=== PATIENT | male | born 1940 | race Caucasian/White ===

== ENCOUNTER 2022-07-07 09:27 | Observation (INO) | payer OTHER ==
--- NOTE | 2022-07-07 09:41 | ERPHSYRPT ---
- History of Present Illness Time Seen by Provider: 07/07/22 09:40 Historian: patient Exam Limitations: no limitations Physician History: Patient is an 81-year-old male with a history of quadruple bypass presents to our ED via EMS for evaluation of of chest pressure fast heart rate and near syncope. Symptoms started just prior to arrival. EMS states they were on their way to [facility] however they were not able to contact anyone via her iron and therefore diverted to our hospital. Upon arrival patient was observed to be in SVT. Patient described the chest pressure. No associated nausea vomiting or diaphoresis. Patient appeared anxious. Symptoms are constant. Symptoms are moderate in intensity. No specific worsening improving factors. Patient denies a history of the same. He voices no other complaints or concerns at this time. Portions of this note were created with voice recognition technology. There may be grammatical, spelling, punctuation or sound alike errors Timing/Duration: today Activities at Onset: none Quality: pressure Location: substernal Chest Pain Radiation: no radiation Severity of Pain-Max: moderate Severity of Pain-Current: mild Modifying Factors: Improves With: nothing Associated Symptoms: other (Near syncope) Nitro Today/Relief: no nitro taken today Aspirin Treatment Today: no aspirin today Allergies/Adverse Reactions: No Known Drug Allergies Allergy (Verified 07/07/22 10:07) - Review of Systems Constitutional: No Symptoms, No Fever, No Chills Eyes: No Symptoms Ears, Nose, & Throat: No Symptoms Respiratory: No Symptoms, No Cough, No Dyspnea Cardiac: No Symptoms, No Chest Pain, No Edema, No Syncope Abdominal/Gastrointestinal: No Symptoms, No Abdominal Pain, No Nausea, No Vomiting, No Diarrhea Genitourinary Symptoms: No Symptoms, No Dysuria Musculoskeletal: No Symptoms, No Back Pain, No Neck Pain Skin: No Symptoms, No Rash Neurological: No Symptoms, No Dizziness, No Focal Weakness, No Sensory Changes Psychological: No Symptoms Endocrine: No Symptoms Hematologic/Lymphatic: No Symptoms Immunological/Allergic: No Symptoms All Other Systems: Reviewed and Negative - Past Medical History Neurological History: No Pertinent History Cardiac History: Hypertension Respiratory History: No Pertinent History Endocrine Medical History: No Pertinent History Musculoskeletal History: Osteoarthritis Other Medical History: 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 - Nursing Vital Signs Nursing Vital Signs: Initial Vital Signs Temperature 97.3 F 02/06/23 09:34 Pulse Rate 164 H 07/07/22 09:34 Respiratory Rate 19 07/07/22 09:34 Blood Pressure 104/83 07/07/22 09:34 O2 Sat by Pulse Oximetry 98 07/07/22 09:34 Pain Scale Pain Intensity 0 - Physical Exam General Appearance: alert, other (She appears anxious.) Eye Exam: PERRL/EOMI, eyes nml inspection Ears, Nose, Throat Exam: normal ENT inspection, TMs normal, pharynx normal, mo ist mucous membranes Neck Exam: normal inspection, non-tender, supple, full range of motion Respiratory Exam: normal breath sounds, lungs clear, airway intact, No respiratory distress Cardiovascular Exam: normal heart sounds, tachycardia, capillary refill 2-3 sec Gastrointestinal/Abdomen Exam: soft, normal bowel sounds, No tenderness, No mass Back Exam: normal inspection, normal range of motion, No CVA tenderness, No vertebral tenderness Extremity Exam: normal inspection, normal range of motion Neurologic Exam: alert, oriented x 3, cooperative, normal mood/affect, sensation nml, No motor deficits Skin Exam: normal color, warm, dry Lymphatic Exam: No adenopathy SpO2 Interpretation: normal SpO2: 98 O2 Delivery: Room Air - Course Nursing assessment & vital signs reviewed: Yes EKG Interpreted by Me: RATE (164), SVT, NORMAL AXIS - Radiology Exams Chest X-ray Interpretation: Teleradiologist Report (Nonacute hyperinflated chest with chronic features) Ordered Tests: Active Orders 24 hr Category Date Time Status Pta STAT Care 07/07/22 09:39 Active EKG-ER Only STAT Care 07/07/22 09:39 Active IV Insertion STAT Care 07/07/22 09:39 Active Pulse Oximetry (ED) STAT Care 07/07/22 09:39 Active CHEST 1 VIEW (PORTABLE) Stat Exams 07/07/22 09:39 Completed CBC W DIFF Stat Lab 07/07/22 09:40 Completed NT PRO BNP Stat Lab 07/07/22 09:40 Completed TROPONIN Q4H Lab 07/07/22 17:45 Completed TROPONIN Stat Lab 07/07/22 13:30 Completed Transfer Order Routine Transfer 07/07/22 Ordered Medication Summary Generic Name Dose Route Start Last Admin Trade Name Freq PRN Reason Stop Dose Admin Diltiazem HCl 120 mg 07/07/22 16:00 07/07/22 16:29 Diltiazem Hcl Cd 120 Mg Cap.Sr.24h PO 08/06/22 15:59 Not Given DAILY ORESTES Discontinued Medications Generic Name Dose Route Start Last Admin Trade Name Anselmo PRN Reason Stop Dose Admin Adenosine Confirm 07/07/22 09:47 Adenosine 6 Mg/2 Ml Vial Administered 07/07/22 09:48 Dose 24 mg IV .STK-MED ONE Sodium Chloride Confirm 07/07/22 09:47 Sodium Chloride 0.9% 1000 Ml Administered 07/07/22 09:48 Dose 1,000 mls @ ud .ROUTE .STK-MED ONE Diltiazem HCl Confirm 07/07/22 09:57 Cardizem Drip 100 Mg/100 Ml D5w Administered 07/07/22 09:58 Dose 100 mls @ ud IV .STK-MED ONE Lab/Rad Data: Laboratory Result Diagrams 07/07/22 09:40 07/07/22 10:29 Laboratory Results 07/07/22 07/07/22 07/07/22 Range/Units Unknown 17:45 13:30 WBC (4.0-10.5) x10^3/uL RBC (4.1-5.6) x10^6/uL Hgb (12.5-18.0) g/dL Hct (42-50) % MCV (78-100) fL MCH (26-32) pg MCHC (32-36) g/dL RDW (11.5-14.0) % Plt Count (150-450) x10^3/uL MPV (7.5-11.0) fL Gran % (36.0-66.0) % Immature Gran % (Auto) (0.00-0.4) % Nucleat RBC Rel Count (0.00-0.1) % Eos # (Auto) (0-0.5) x10^3/uL Immature Gran # (Auto) (0.00-0.03) x10^3u/L Absolute Lymphs (auto) (1.0-4.6) x10^3/uL Absolute Monos (auto) (0.0-1.3) x10^3/uL Absolute Nucleated RBC (0.00-0.01) x10^3u/L Lymphocytes % (24.0-44.0) % Monocytes % (0.0-12.0) % Eosinophils % (0.00-5.0) % Basophils % (0.0-0.4) % Absolute Granulocytes (1.4-6.9) x10^3/uL Basophils # (0-0.4) x10^3/uL Sodium Direct (138-146) mmol/L Potassium (3.5-4.9) mmol/L Chloride (98-109) mmol/L Carbon Dioxide (24-29) mmol/L Venous BUN (8-26) mg/dL Creatinine (0.6-1.3) mg/dL Glucose (70-105) mg/dL Ionized Calcium (1.12-1.32) mmol/L Troponin 0.07 H (0.00-0.03) ng/mL Troponin I 0.060 H* 0.031 (0.000-0.034) ng/mL NT-Pro-B Natriuret Pep (0-1800) pg/mL Influenza Type A Ag NEGATIVE (NEGATIVE) Influenza Type B Ag NEGATIVE (NEGATIVE) RSV (PCR) NEGATIVE (Negative) SARS-CoV-2 (PCR) NEGATIVE (NEGATIVE) 07/07/22 07/07/22 07/07/22 Range/Units 10:29 09:40 09:40 WBC (4.0-10.5) x10^3/uL RBC (4.1-5.6) x10^6/uL Hgb (12.5-18.0) g/dL Hct (42-50) % MCV (78-100) fL MCH (26-32) pg MCHC (32-36) g/dL RDW (11.5-14.0) % Plt Count (150-450) x10^3/uL MPV (7.5-11.0) fL Gran % (36.0-66.0) % Immature Gran % (Auto) (0.00-0.4) % Nucleat RBC Rel Count (0.00-0.1) % Eos # (Auto) (0-0.5) x10^3/uL Immature Gran # (Auto) (0.00-0.03) x10^3u/L Absolute Lymphs (auto) (1.0-4.6) x10^3/uL Absolute Monos (auto) (0.0-1.3) x10^3/uL Absolute Nucleated RBC (0.00-0.01) x10^3u/L Lymphocytes % (24.0-44.0) % Monocytes % (0.0-12.0) % Eosinophils % (0.00-5.0) % Basophils % (0.0-0.4) % Absolute Granulocytes (1.4-6.9) x10^3/uL Basophils # (0-0.4) x10^3/uL Sodium Direct 137 L (138-146) mmol/L Potassium 4.2 (3.5-4.9) mmol/L Chloride 105 (98-109) mmol/L Carbon Dioxide 22 L (24-29) mmol/L Venous BUN 28 H (8-26) mg/dL Creatinine 1.3 (0.6-1.3) mg/dL Glucose 113 H (70-105) mg/dL Ionized Calcium 1.21 (1.12-1.32) mmol/L Troponin 0.02 (0.00-0.03) ng/mL Troponin I (0.000-0.034) ng/mL NT-Pro-B Natriuret Pep 477 (0-1800) pg/mL Influenza Type A Ag (NEGATIVE) Influenza Type B Ag (NEGATIVE) RSV (PCR) (Negative) SARS-CoV-2 (PCR) (NEGATIVE) 07/07/22 Range/Units 09:40 WBC 5.8 (4.0-10.5) x10^3/uL RBC 4.80 (4.1-5.6) x10^6/uL Hgb 14.6 (12.5-18.0) g/dL Hct 45.0 (42-50) % MCV 93.8 (78-100) fL MCH 30.4 (26-32) pg MCHC 32.4 (32-36) g/dL RDW 12.9 (11.5-14.0) % Plt Count 137 L (150-450) x10^3/uL MPV 10.9 (7.5-11.0) fL Gran % 80.5 H (36.0-66.0) % Immature Gran % (Auto) 0.3 (0.00-0.4) % Nucleat RBC Rel Count 0.0 (0.00-0.1) % Eos # (Auto) 0.04 (0-0.5) x10^3/uL Immature Gran # (Auto) 0.02 (0.00-0.03) x10^3u/L Absolute Lymphs (auto) 0.65 L (1.0-4.6) x10^3/uL Absolute Monos (auto) 0.40 (0.0-1.3) x10^3/uL Absolute Nucleated RBC 0.00 (0.00-0.01) x10^3u/L Lymphocytes % 11.1 L (24.0-44.0) % Monocytes % 6.9 (0.0-12.0) % Eosinophils % 0.7 (0.00-5.0) % Basophils % 0.5 (0.0-0.4) % Absolute Granulocytes 4.69 (1.4-6.9) x10^3/uL Basophils # 0.03 (0-0.4) x10^3/uL Sodium Direct (138-146) mmol/L Potassium (3.5-4.9) mmol/L Chloride (98-109) mmol/L Carbon Dioxide (24-29) mmol/L Venous BUN (8-26) mg/dL Creatinine (0.6-1.3) mg/dL Glucose (70-105) mg/dL Ionized Calcium (1.12-1.32) mmol/L Troponin (0.00-0.03) ng/mL Troponin I (0.000-0.034) ng/mL NT-Pro-B Natriuret Pep (0-1800) pg/mL Influenza Type A Ag (NEGATIVE) Influenza Type B Ag (NEGATIVE) RSV (PCR) (Negative) SARS-CoV-2 (PCR) (NEGATIVE) - Progress Progress: improved Air Movement: good Progress Note: Patient is an 81-year-old male presents the emergency department 07/07/22 11:[address] Sher client service consultant [facility] who advised obtaining a second troponin. Stopping the Cardizem drip and starting patient on oral Cardizem. If patient is asymptomatic and remains in sinus rhythm after drip is stopped patient may be discharged home. 07/07/22 13:41 We we trended patient's troponins. Patient's troponin trended upward. We decided to admit patient for observation. Patient has no chest pain at all. Patient is a 81-year-old male with a history of quadruple bypass presents to our ED via EMS for chest pressure. EKG reviewed by Dr. Hassan revealed SVT. Patient received adenosine 6 mg followed by 12 mg. No successful conversion. Cardizem drip initiated. Rate controlled achieved. Troponin 0.02. Second troponin 0.031. We spoke to Dr. Phoenix Maddox client service consultant at [facility] who advised discharge. We obtained a third troponin which increased to 0.06. We decided to keep patient in the hospital for observation. Patient's initial complaint was acute. Complex if complaint was severe. No significant comorbidities to contribute the patient's present encounter. Studies ordered includes EKG, chest x-ray, CBC, CMP, COVID study, BNP, troponin, The results of the studies were used to formulate the medical decision-making process. Diltiazem drip initiated. Diltiazem drip started as a rate control and antiarrhythmic which has serious potential side effects. This is a dangerous medication in this regard. This required ongoing monitoring. Patient's presentation required immediate intervention dictating a time of critical care. Case discussed with Dr. Sher client service consultant. I spoke to Dr. Genesis Maddox 2 different occasions regarding our patient. Patient agrees to admission to [facility] for further rosa luation and treatment. Level of EM service provided was critical. Complexity of problem is critical. Complexity of data analyzed was high. Risks of complication/morbidity/mortality of patient management was high/critical. Critical care time was between 30 and 74 minutes. Patient served as independent historian however his at bedside also provided significant information used in the HPI. Patient is a full code. Portions of this note were created with voice recognition technology. There may be grammatical, spelling, punctuation or sound alike errors 07/07/22 19:22 07/07/22 19:25 Blood Culture(s) Obtained: No Antibiotics given: No Discussed with : John Will see patient in: hospital (observation) Counseled pt/family regarding: lab results, diagnosis, rad results - Departure Departure Disposition: Observation Clinical Impression: SVT (supraventricular tachycardia), Elevated troponin Condition: Stable Critical Care Time: Yes Critical Care Time(excluding separately billable procedures): Critical 30-74 mins Referrals: ELYSIA SHEPPARD MD [Primary Care Provider] - Follow up/PCP as directed
[2022-07-07] MEDS ORDERED: Sodium Chloride 0.9% 1000 ML 1,000 ML ONE (09:47)
[2022-07-07] MEDS ORDERED: Adenocard IV 6 MG/2 ML IV ONE (09:47)
--- NOTE | 2022-07-07 09:55 | XRAY ---
Indication: Chest pain. Comparison: None Portable chest hyperinflated with minimal left upper lobe fibrosis/scarring. No focal infiltrate, consolidation, or large effusion. Heart not enlarged with CABG surgery. Bony thorax intact with mild degenerative changes. Impression: Nonacute hyperinflated chest with chronic features.
[2022-07-07 09:56] LABS: Absolute Neutrophil Ct (ANC) 4.69 x10^3/uL (1.4-6.9); BASOPHIL % 0.5 % (0.0-0.4); Basophil (Absolute #) 0.03 x10^3/uL (0-0.4); Eosinophil % 0.7 % (0.00-5.0); Eosinophil (Absolute #) 0.04 x10^3/uL (0-0.5); Hemoglobin 14.6 g/dL (12.5-18.0); IMMATURE GRAN # 0.02 x10^3u/L (0.00-0.03); IMMATURE GRAN % 0.3 % (0.00-0.4); Lymphocyte (Absolute #) 0.65 x10^3/uL (1.0-4.6); Lymphocytes % 11.1 % (24.0-44.0); Mean Cell Volume 93.8 fL (78-100); Mean Corpuscular Hemoglobin 30.4 pg (26-32); Mean Corpuscular Hgb Concent. 32.4 g/dL (32-36); Mean Platelet Volume 10.9 fL (7.5-11.0); Monocytes % 6.9 % (0.0-12.0); Neutrophil % 80.5 % (36.0-66.0); Platelet Count 137 x10^3/uL (150-450); Red Cell Distribution Width 12.9 % (11.5-14.0); White Blood Count 5.8 x10^3/uL (4.0-10.5)
[2022-07-07] MEDS ORDERED: CARDIZEM DRIP 100 MG/100 ML D5W 100 ML IV ONE (09:57)
[2022-07-07 10:38] LABS: ISTAT K 4.2 mmol/L (3.5-4.9)
[2022-07-07 10:39] LABS: ISTAT CREA 1.3 mg/dL (0.6-1.3); ISTAT iCA 1.21 mmol/L (1.12-1.32)
[2022-07-07 11:24] LABS: INFLUENZA A NEGATIVE (NEGATIVE); INFLUENZA B NEGATIVE (NEGATIVE); RESPIRATORY SYNCTIAL VIRUS NEGATIVE (Negative); SARS-CoV-2 Xpert Express NEGATIVE (NEGATIVE)
[2022-07-07 14:53] LABS: TROPONIN 0.031 ng/mL (0.000-0.034)
[2022-07-07 14:56] LABS: ISTAT cTNI 0.07 ng/mL (0.00-0.03)
[2022-07-07] MEDS: Cardizem CD PO SCH ×2 (15:26→16:29)
[2022-07-07] MEDS ORDERED: TYLENOL 325 MG PO PRN (21:00)
[2022-07-07] MEDS ORDERED: MAALOX ES 30 ML UNIT DOSE PO PRN (21:00)
[2022-07-07] MEDS ORDERED: MILK OF MAGNESIA 30 ML PO PRN (21:00)
[2022-07-07] MEDS ORDERED: Senokot-S Tablet PO PRN (21:00)
[2022-07-07] MEDS ORDERED: Zofran 4 MG/2 ML VIAL IV PRN (21:00)
[2022-07-07] MEDS ORDERED: Flonase NASAL NS SCH (22:00)
[2022-07-07] MEDS ORDERED: NEURONTIN PO PRN (22:41)
[2022-07-07] MEDS ORDERED: Flomax 0.4 MG PO SCH (23:00)
[2022-07-07] MEDS: Zestril 20 MG PO SCH (23:06)
[2022-07-07] MEDS: Zocor 10MG PO SCH (23:06)
[2022-07-07] MEDS: CLARITIN 10 MG PO SCH (23:06)
[2022-07-08] MEDS ORDERED: CARDIZEM DRIP 100 MG/100 ML D5W 100 ML IV ONE (02:02)
[2022-07-08] MEDS ORDERED: Sodium Chloride 0.9% 1000 ML 1,000 ML ONE ×2 (02:03→02:57)
[2022-07-08] MEDS: CARDIZEM DRIP 100 MG/100 ML D5W 100 ML IV PRN ×2 (02:17→03:21)
[2022-07-08] MEDS ORDERED: Sodium Chloride 0.9% 1000 ML 1,000 ML IV STA (02:31)
[2022-07-08] MEDS ORDERED: Cardizem IV 50 MG/10 ML IV ONE (03:24)
[2022-07-08 04:42] LABS: ANION GAP 10.9 MEQ/L (5-15); BLOOD UREA NITROGEN 20 mg/dL (9-20); CHLORIDE 110 mmol/L (98-107); Calcium 8.1 mg/dL (8.4-10.2); Carbon Dioxide 17 mmol/L (22-30); Cholesterol 131 mg/dL (50-200); Creatinine 1 0.83 mg/dL (0.66-1.25); EST GLOMERULAR FILTRATION RATE > 60.0 ML/MIN; Glucose 117 mg/dL (74-106); HDL CHOLESTEROL 43 mg/dL (40-60); LDL, DIRECT 64 mg/dL (30-100); MAGNESIUM 1.9 mg/dL (1.6-2.3); NT PRO BNP 361 pg/mL (0-1800); Potassium 3.8 mmol/L (3.5-5.1); Risk Ratio 3.1; SODIUM 134 mmol/L (137-145); TRIGLYCERIDE 69 mg/dL (30-150)
[2022-07-08] MEDS ORDERED: MEDICATION INTERVENTION MC SCH (07:15)
--- NOTE | 2022-07-08 08:41 | XRAY ---
Indication: Tachycardia. Comparison: One day earlier Portable chest unchanged again hyperinflated with minimal left upper lobe fibrosis/scarring. Heart not enlarged again with CABG. No new/acute findings. Comment: Preliminary interpretation made by [facility]. No critical discrepancy.
[2022-07-08] MEDS: Zestril 20 MG PO SCH (09:06)
[2022-07-08] MEDS: Klor Con PO SCH (09:06)
[2022-07-08] MEDS: LASIX 20 MG PO SCH (09:06)
[2022-07-08] MEDS: Ecotrin 325 MG PO SCH (09:07)
[2022-07-08] MEDS: PATIENT OWN MEDICATION PO SCH (09:08)
[2022-07-08] MEDS: Cardizem CD PO SCH (09:53)
[2022-07-08] MEDS ORDERED: NON-FORMULARY ITEM PO SCH (10:00)
--- NOTE | 2022-07-08 11:56 | PCM.HP ---
History of Present Illness - Chief Complaint Chief Complaint: SVT History of Present Illness: is an 81 [facility] and [facility]CP Dr Valnecia with PMHx CAD S/P CABG who presented to ER by EMS c/o dizziness ,heart palpitations and chest pressure. EKG revealed SVT rate 160 + ,CXR chronic hyperinflation no acute changes. Treatment in ER - Patient received adenosine 6 mg followed by 12 mg. No successful conversion. Cardizem drip initiated. Rate control achieved. Serial Troponin = 0.02. Second troponin = 0.031. ER consulted with Coding Team Lead Dr Wu at [facility] who advised discharge home but third troponin increased to 0.06. and patient was admitted to OBS telemetry VSS and unlabored breathing. Heart rate went up to 160s tele showed SVT and patient was moved to ICU bed and Cardiazem drip was restarted, B/P dropped and patient required NS bolus ,Rapd response was called by ICU nurse and ER Dr Hassan evaluated. Patient stabilized after additional NS bolus. Cardiazem drip discontinued and oral Cardiazem initiated . Patient transferred out of ICU to tele bed and VS remained stable. Note patient was on alpha blockers for BPH and dose was reduced. Medications & Allergies Home Medications: Home Medication List Aspirin EC 325 mg [Ecotrin 325 MG] 325 mg PO DAILY 07/07/22 [History Confirmed 07/07/22] Cetirizine HCl [Zyrtec] 10 mg PO QHS 07/07/22 [History Confirmed 07/07/22] Fluticasone Propionate [Flonase NASAL] 2 spray NS QHS 07/07/22 [History Confirmed 07/07/22] Furosemide [Lasix] 10 mg PO DAILY 07/07/22 [History Confirmed 07/07/22] Gabapentin [Neurontin ] 300 mg PO DAILY PRN PRN 07/07/22 [History Confirmed 07/07/22] Potassium Chloride 10 meq PO DAILY 07/07/22 [History Confirmed 07/07/22] Simvastatin 20Mg [Zocor 20Mg] 10 mg PO QHS 07/07/22 [History Confirmed 07/07/22] Ubidecarenone [Co Q-10] 200 mg PO DAILY 07/07/22 [History Confirmed 07/07/22] Metoprolol Tartrate 12.5 mg PO DAILY 07/08/22 [History Confirmed 07/08/22] Diltiazem HCl Cd [Cardizem CD ] 120 mg PO BID 30 Days #60 cap 07/10/22 [Rx] Tamsulosin HCl 0.4 mg [Flomax 0.4 MG] 0.4 mg PO HS 30 Days #0 07/10/22 [Rx Confirmed 07/08/22] Allergies/Adverse Reactions: Allergies Allergy/AdvReac Type Severity Reaction Status Date / Time No Known Drug Allergies Allergy Verified 07/07/22 10:07 - Past Medical History Past Medical History: Yes Neurological History: No Pertinent History ENT History: No Pertinent History Cardiac History: Hypertension Respiratory History: No Pertinent History Endocrine Medical History: No Pertinent History Musculoskelatal History: Osteoarthritis GI Medical History: No Pertinent History History: No Pertinent History Pyscho-Social History: No Pertinent History Male Reproductive Disorders: Prostate Problems Comment: 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 - Past Surgical History Past Surgical History: Yes Cardiac History: CABG GI Surgical History: Hernia Repair Musculskeletal Surgical Hx: Orthopedic Surgery Other Surgical History: back - Social History Smoking Status: Never smoker Exposure to second hand smoke: No - Physical Exam Vital Signs: Vital Signs - 24 hr Temp Pulse Resp BP BP Pulse Ox 07/08/22 11:47 98.5 F 88 22 156/72 95 07/08/22 09:00 88 127/77 07/08/22 05:03 78 102/66 97 07/08/22 04:30 68 113/70 07/08/22 04:21 86 16 113/70 07/08/22 04:00 78 18 110/70 07/08/22 03:30 94 H 14 116/68 94 L 07/08/22 03:20 81 123/76 07/08/22 03:16 96 H 107/69 07/08/22 03:15 88 18 107/69 98 07/08/22 03:14 81 18 90/59 07/08/22 03:10 152 H 18 90/59 98 07/08/22 03:08 150 H 110/87 07/08/22 03:01 150 H 18 89/59 07/08/22 03:00 160 H 89/59 07/08/22 02:55 195 H 20 78/49 97 07/08/22 02:50 166 H 18 88/76 98 07/08/22 02:46 157 H 18 91/68 07/08/22 02:45 166 H 18 87/70 97 07/08/22 02:41 155 H 97/83 07/08/22 02:40 160 H 17 97/83 97 07/08/22 02:35 165 H 16 84/64 97 07/08/22 02:29 160 H 83/72 07/08/22 02:25 161 H 18 83/72 97 07/08/22 02:21 98 F 07/08/22 02:20 158 H 18 98/85 97 07/08/22 02:17 160 H 18 98/85 07/07/22 23:36 98.2 F 69 16 107/66 92 L 07/07/22 22:12 95 07/07/22 21:04 97.3 F 76 16 136/72 96 07/07/22 20:00 72 16 118/65 97 07/07/22 19:32 98 07/07/22 18:15 64 16 124/72 95 07/07/22 17:58 76 19 119/76 95 07/07/22 16:23 76 19 112/70 95 07/07/22 15:13 66 118/70 96 07/07/22 13:09 96 H 22 107/67 96 07/07/22 12:06 101 H 18 112/72 98 General Appearance: anxiety (fearful if "heart will race again") Neurologic Exam: alert, oriented x 3, cooperative Eye Exam: eyes nml inspection Ears, Nose, Throat Exam: normal ENT inspection Neck Exam: normal inspection Respiratory Exam: normal breath sounds Cardiovascular Exam: regular rate/rhythm (rate 70) Gastrointestinal/Abdomen Exam: soft, normal bowel sounds (nontender) Rectal Exam: not done Back Exam: other (scoliosis) Extremity Exam: normal inspection Skin Exam: normal color, warm, dry Results - Labs Lab/Micro Results: Lab Results-Last 24 Hours 07/07/22 07/07/22 07/07/22 Range/Units 09:40 13:30 17:45 Sodium (137-145) mmol/L Potassium (3.5-5.1) mmol/L Chloride (98-107) mmol/L Carbon Dioxide (22-30) mmol/L Anion Gap (5-15) MEQ/L BUN (9-20) mg/dL Creatinine (0.66-1.25) mg/dL Estimated GFR ML/MIN Glucose (74-106) mg/dL POC Glucometer (74 to 106) mg/dL Calcium (8.4-10.2) mg/dL Magnesium (1.6-2.3) mg/dL Troponin 0.07 H (0.00-0.03) ng/mL Troponin I 0.031 0.060 H* (0.000-0.034) ng/mL NT-Pro-B Natriuret Pep 477 (0-1800) pg/mL Triglycerides (30-150) mg/dL Cholesterol (50-200) mg/dL LDL Cholesterol (30-100) mg/dL HDL Cholesterol (40-60) mg/dL Heart Disease Risk Ratio Thyroxine (T4) (5.53-10.96) ug/dL TSH 3rd Generation (0.47-4.68) mIU/L 07/08/22 07/08/22 07/08/22 Range/Units 01:25 02:41 03:13 Sodium 134 L (137-145) mmol/L Potassium 3.8 (3.5-5.1) mmol/L Chloride 110 H (98-107) mmol/L Carbon Dioxide 17 L (22-30) mmol/L Anion Gap 10.9 (5-15) MEQ/L BUN 20 (9-20) mg/dL Creatinine 0.83 (0.66-1.25) mg/dL Estimated GFR > 60.0 ML/MIN Glucose 117 H (74-106) mg/dL POC Glucometer 115 H (74 to 106) mg/dL Calcium 8.1 L (8.4-10.2) mg/dL Magnesium 1.9 (1.6-2.3) mg/dL Troponin (0.00-0.03) ng/mL Troponin I 0.051 H* (0.000-0.034) ng/mL NT-Pro-B Natriuret Pep 361 (0-1800) pg/mL Triglycerides 69 (30-150) mg/dL Cholesterol 131 (50-200) mg/dL LDL Cholesterol 64 (30-100) mg/dL HDL Cholesterol 43 (40-60) mg/dL Heart Disease Risk Ratio 3.1 Thyroxine (T4) (5.53-10.96) ug/dL TSH 3rd Generation 2.010 (0.47-4.68) mIU/L 07/08/22 Range/Units 03:20 Sodium (137-145) mmol/L Potassium (3.5-5.1) mmol/L Chloride (98-107) mmol/L Carbon Dioxide (22-30) mmol/L Anion Gap (5-15) MEQ/L BUN (9-20) mg/dL Creatinine (0.66-1.25) mg/dL Estimated GFR ML/MIN Glucose (74-106) mg/dL POC Glucometer (74 to 106) mg/dL Calcium (8.4-10.2) mg/dL Magnesium (1.6-2.3) mg/dL Troponin (0.00-0.03) ng/mL Troponin I (0.000-0.034) ng/mL NT-Pro-B Natriuret Pep (0-1800) pg/mL Triglycerides (30-150) mg/dL Cholesterol (50-200) mg/dL LDL Cholesterol (30-100) mg/dL HDL Cholesterol (40-60) mg/dL Heart Disease Risk Ratio Thyroxine (T4) 6.49 (5.53-10.96) ug/dL TSH 3rd Generation (0.47-4.68) mIU/L - Radiology Impressions Radiology Exams & Impressions: Radiology Procedures Category Date Time Status CHEST 1 VIEW (PORTABLE) Stat Exams 07/07/22 09:39 Completed CHEST 1 VIEW (PORTABLE) Stat Exams 07/08/22 03:09 Completed - Other Procedures and Tests Respiratory Therapy 07/09/22 05:00 EKG ROUTINE 07/10/22 05:00 EKG ROUTINE Assessment/Plan (1) SVT (supraventricular tachycardia) Current Visit: Yes Status: Resolved Assessment & Plan: Dr Bass Coding Team Lead to follow ,appt next week. Continue oral Cardiazem . Code(s): I47.1 - SUPRAVENTRICULAR TACHYCARDIA (2) Elevated troponin Current Visit: Yes Status: Acute Assessment & Plan: mild elevation but trended up in ER -admitted for OBS Code(s): R77.8 - OTHER SPECIFIED ABNORMALITIES OF PLASMA PROTEINS (3) CAD (coronary artery disease) Current Visit: Yes Status: Chronic Qualifiers: Coronary Disease-Associated Artery/Lesion type: bypass graft Assessment & Plan: Hx CABG x4 vessels Code(s): I25.10 - ATHSCL HEART DISEASE OF [place] CORONARY ARTERY W/O ANG PCTRS (4) Anxiety about health Current Visit: Yes Status: Acute Assessment & Plan: low dose Xanax Code(s): F41.8 - OTHER SPECIFIED ANXIETY DISORDERS (5) BPH (benign prostatic hyperplasia) Current Visit: Yes Status: Chronic Assessment & Plan: Dr Alexander follows was on Tarazosin and Flomax- Tarazosin held and Flomax dose reduced due to SVT Code(s): N40.0 - BENIGN PROSTATIC HYPERPLASIA WITHOUT LOWER URINRY TRACT SYMP
[2022-07-08] MEDS: Lopressor 25MG Tab PO SCH (13:21)
[2022-07-08] MEDS: CLARITIN 10 MG PO SCH (21:11)
[2022-07-08] MEDS: Zocor 10MG PO SCH (21:11)
[2022-07-08] MEDS: Flomax 0.4 MG PO SCH (21:11)
[2022-07-08] MEDS: Flonase NASAL NS SCH (21:11)
[2022-07-08] MEDS ORDERED: TERAZOSIN HCL 10 MG PO SCH (22:00)
[2022-07-09] MEDS: LASIX 20 MG PO SCH (09:26)
[2022-07-09] MEDS: Ecotrin 325 MG PO SCH (09:28)
[2022-07-09] MEDS: Lopressor 25MG Tab PO SCH (09:28)
[2022-07-09] MEDS: Flomax 0.4 MG PO SCH (09:28)
[2022-07-09] MEDS: Cardizem CD PO SCH ×3 (09:28→21:31)
[2022-07-09] MEDS: Klor Con PO SCH (09:28)
[2022-07-09] MEDS ORDERED: xanAX 0.25 MG PO ONE (10:02)
[2022-07-09] MEDS: PATIENT OWN MEDICATION PO SCH (10:28)
[2022-07-09 11:05] LABS: Absolute Neutrophil Ct (ANC) 4.74 x10^3/uL (1.4-6.9); BASOPHIL % 0.9 % (0.0-0.4); Basophil (Absolute #) 0.05 x10^3/uL (0-0.4); Eosinophil (Absolute #) 0.06 x10^3/uL (0-0.5); Hematocrit 45.1 % (42-50); Hemoglobin 14.7 g/dL (12.5-18.0); IMMATURE GRAN # 0.02 x10^3u/L (0.00-0.03); IMMATURE GRAN % 0.3 % (0.00-0.4); Lymphocyte (Absolute #) 0.59 x10^3/uL (1.0-4.6); Lymphocytes % 10.1 % (24.0-44.0); Mean Cell Volume 93.8 fL (78-100); Mean Corpuscular Hemoglobin 30.6 pg (26-32); Mean Corpuscular Hgb Concent. 32.6 g/dL (32-36); Mean Platelet Volume 10.3 fL (7.5-11.0); Monocyte (Absolute #) 0.41 x10^3/uL (0.0-1.3); Neutrophil % 80.7 % (36.0-66.0); Platelet Count 146 x10^3/uL (150-450); Red Blood Count 4.81 x10^6/uL (4.1-5.6); Red Cell Distribution Width 12.8 % (11.5-14.0); White Blood Count 5.9 x10^3/uL (4.0-10.5)
[2022-07-09 11:18] LABS: ALBUMIN 4.1 g/dL (3.5-5.0); ALKALINE PHOSPHATASE 85 U/L (38-126); ANION GAP 13.1 MEQ/L (5-15); BLOOD UREA NITROGEN 18 mg/dL (9-20); CHLORIDE 108 mmol/L (98-107); Calcium 8.8 mg/dL (8.4-10.2); Carbon Dioxide 22 mmol/L (22-30); Creatinine 1 0.98 mg/dL (0.66-1.25); EST GLOMERULAR FILTRATION RATE > 60.0 ML/MIN; Glucose 130 mg/dL (74-106); SGOT/AST 30 U/L (17-59); SGPT/ALT 19 U/L (0-50); SODIUM 139 mmol/L (137-145); Total Protein 6.8 g/dL (6.3-8.2)
[2022-07-09 11:43] LABS: Slide Review 1 YES
[2022-07-09 14:12] LABS: Appearance Clear (Clear); Bacteria None Seen /HPF (None Seen); Bilirubin Negative (Negative); Blood Moderate (Negative); Epithelial Cells None Seen /HPF (None Seen); Glucose, Urine Negative (Negative); Hyaline Casts NONE SEEN /LPF (0-2); Ketones Negative (Negative); Leukocyte Esterase Negative (Negative); Nitrite Negative (Negative); Ph 5.5 (4.6-8.0); Protein,Urine Dip 30 (Negative); Specific Gravity 1.015 (1.005-1.030); Urobilinogen 0.2 mg/dL (0.2)
[2022-07-09 14:22] LABS: ADD URINE CULTURE? YES (NO)
[2022-07-09] MEDS: Zocor 10MG PO SCH (21:31)
[2022-07-09] MEDS: CLARITIN 10 MG PO SCH (21:31)
[2022-07-09] MEDS: Flonase NASAL NS SCH (21:31)
[2022-07-10] MEDS: LASIX 20 MG PO SCH (08:59)
[2022-07-10] MEDS: Ecotrin 325 MG PO SCH (08:59)
[2022-07-10] MEDS: Cardizem CD PO SCH (08:59)
[2022-07-10] MEDS: Lopressor 25MG Tab PO SCH (09:00)
[2022-07-10] MEDS: PATIENT OWN MEDICATION PO SCH (09:00)
[2022-07-10] MEDS: Klor Con PO SCH ×2 (09:00→09:01)
[2022-07-10] MEDS ORDERED: Cardizem CD PO SCH (10:00)
[2022-07-10 10:49] VITALS: BP 114/73; PULSE 94; O2SAT 96
[2022-07-10] MEDS ORDERED: Flomax 0.4 MG PO SCH (22:00)
== END 2022-07-10 11:10 | disposition home or self-care (01) ==
LOC: ED 09:27 → MED SURG 20:58 → ICU 07-08 02:21 → MED SURG 07-08 13:50
PROVIDERS: ADMIT Family Medicine; ATTEND Family Medicine
DX: I47.1 Supraventricular tachycardia (principal); R77.8 Other specified abnormalities of plasma proteins; I25.10 Atherosclerotic heart disease of native coronary artery without angina pectoris; F41.8 Other specified anxiety disorders; N40.0 Benign prostatic hyperplasia without lower urinary tract symptoms; I10 Essential (primary) hypertension; Z79.899 Other long term (current) drug therapy; Z20.828 Contact with and (suspected) exposure to other viral communicable diseases; Z95.1 Presence of aortocoronary bypass graft
CPT/HCPCS: 0241U; 36000; 36415; 71045; 80047; 80048; 80053; 80061; 81001; 82947; 83721; 83735; 83880; 84146; 84436; 84443; 84484; 85025; 87086; 93005; 93041; 93268; 94760; 94762; 99285; 99291; G0378; J0153; A9270-GY